=== PATIENT | male | born 1990 | race Two or more races ===

== ENCOUNTER 2020-12-20 05:36 | Emergency (ER) | payer OTHER ==
[~2020-12-20] VITALS: Ht 172.7 cm; Wt 104.3 kg
[2020-12-20 05:40] VITALS: BP 137/88
--- NOTE | 2020-12-20 05:57 | NUR ---
PATIENT TO ER BED 10 [facility] C/O CELLULITIS ON THE RIGHT LEG, PRIMARILY ON THE ROSE FOR FEW DAYS, PER REPORT. PATIENT HAS HX OF HEROIN USE. PT IS ALERT AND ORIENTED X4. DENIES SHORTNES OF BREATH. CALL LIGHT WITHIN REACH.
[2020-12-20] MEDS ORDERED: CEPH500C2 PO ×2 (06:50→18:42)
[2020-12-20] MEDS ORDERED: SULF1TAB48 PO ×2 (06:50→18:42)
[2020-12-20] MEDS ORDERED: NALO4SPR NS (06:50)
== END 2020-12-20 06:58 ==
LOC: ER 05:39
DX: L03.115 Cellulitis of right lower limb (principal); F11.10 Opioid abuse, uncomplicated; F41.9 Anxiety disorder, unspecified

== ENCOUNTER 2020-12-20 18:18 | Emergency (ER) | payer OTHER ==
[~2020-12-20] VITALS: Ht 172.7 cm; Wt 104.3 kg
[~2020-12-20 18:18] MED LIST: CEPH500C2 PO; NALO4SPR NS; SULF1TAB48 PO
--- NOTE | 2020-12-20 18:18 | NUR ---
PT [facility] AND [employer] C/O RLE SWELLING FOR 3 DAYS. PT IS AAOX4, NOT IN RESPIRATORY DISTRESS, V/S STABLE, KEPT RESTED AND COMFORTABLE. WILL CONTINUE TO MONITOR.
[2020-12-20] MEDS ORDERED: CEPH500C2 PO (18:42)
[2020-12-20] MEDS ORDERED: SULF1TAB48 PO (18:42)
[2020-12-20] MEDS ORDERED: IBUPROFEN 600 MG TABLET ONE (19:04)
[2020-12-20 19:06] VITALS: BP 135/78
--- NOTE | 2020-12-20 19:06 | NUR ---
Patient discharged to in custody in stable condition. Written and verbal after care instructions given. Patient verbalizes understanding of instruction.
[2020-12-20] MEDS: IBUPROFEN 600 MG TABLET PO ONE (19:11)
== END 2020-12-20 19:07 ==
LOC: ER 18:20
DX: Z02.89 Encounter for other administrative examinations (principal); L03.115 Cellulitis of right lower limb; F41.9 Anxiety disorder, unspecified; Z79.899 Other long term (current) drug therapy